=== PATIENT | male | born 1995 | race Caucasian/White ===

== ENCOUNTER 2017-11-04 07:01 | Emergency (ER) | payer SELFPAY ==
[~2017-11-04] VITALS: Ht 180.3 cm; Wt 87.0 kg
[~2017-11-04 07:01] MED LIST: LORTAB 5-325 M1 EACH PO; ZOFRAN ODT8 MG PO
[2017-11-04 07:12] VITALS: BP 136/76
[2017-11-04] MEDS ORDERED: KEFLEX500 MG PO (08:56)
[2017-11-04] MEDS ORDERED: PERCOCET 5/31 TABLET PO (09:15)
== END 2017-11-04 09:26 | disposition home or self-care (01) ==
LOC: EME 07:01
PROC: 3E0T3BZ Introduction of Anesthetic Agent into Peripheral Nerves and Plexi, Percutaneous Approach (ICD-10-PCS; principal; 2017-11-04)
DX: S68.120A Partial traumatic metacarpophalangeal amputation of right index finger, initial encounter (principal); W23.0XXA Caught, crushed, jammed, or pinched between moving objects, initial encounter; F17.200 Nicotine dependence, unspecified, uncomplicated
CPT/HCPCS: 73140; 99281; 99285